=== PATIENT | male | born 1945 | race Caucasian/White ===

== ENCOUNTER 2019-10-09 13:54 | Observation (INO) | payer OTHER ==
[~2019-10-09] VITALS: Ht 170.2 cm; Wt 63.9 kg
--- NOTE | 2019-10-09 01:17 | NUR ---
POTASSIUM WRITTEN ORDER BY DR. HERNANDEZ TO RECHECK POTASSIUM AT 1999. PT WAS LATE COMING TO THE FLOOR FROM ER AND HAD JUST BARELY STARTED HIS 2ND BAG OF THREE. POTASSIUM HAD BEEN PREMATURELY DRAWN AT 1999 BY LAB, AND K+ RESULTS CAME BACK AT 2.8. PT FINISHED HIS THRID BAG OF POTASSIUM AND HIS POTASSIUM WAS REDRAWN BY LAB. RESULTS OF [address] HERNANDEZ WRITTEN NOTE IN H&P AND PER REPORT FROM [facility] RN INFUSE ANOTHER 40 MEQ IF POTASSIUM IS BELOW 3.5. PT TO RECEIVE AN ADDITIONAL 40 MEQ. 1ST BAG OF 2 INFUSING AT THIS TIME.
[~2019-10-09 13:54] MED LIST: AMLO10 PO; ASPI81CH PO; ATEN25 PO; CHLO25B PO; Cyclobenzaprine5 MG PO; GABA100 PO; GLIP5 PO; Hydrocodone-Ap1 EA23 PO; SIMV40 PO
[2019-10-09] MEDS ORDERED: ATOR80 PO (14:23)
[2019-10-09] MEDS ORDERED: TIZA4 PO (14:24)
[2019-10-09] MEDS ORDERED: ATEN25 PO (14:24)
[2019-10-09] MEDS ORDERED: AMLO10 PO (14:24)
[2019-10-09] MEDS ORDERED: GLIP5 PO (14:25)
[2019-10-09] MEDS ORDERED: CHLO25B PO (14:25)
[2019-10-09] MEDS ORDERED: Aspir 8181 MG PO (14:25)
[2019-10-09 14:34] LABS: BASOPHILS ABSOLUTE AUTO 0.02 K/mm3 (0.00-0.23); BASOPHILS PERCENT AUTO 0 % (0-2); EOSINOPHILS ABSOLUTE AUTO 0.03 K/mm3 (0.00-0.68); EOSINOPHILS PERCENT AUTO 0 % (0-6); Hematocrit 44.6 % (37.0-53.0); Hemoglobin 16.1 g/dL (13.5-17.5); IMMATURE GRAN ABSOLUTE AUTO 0.06 K/mm3 (0.00-0.10); IMMATURE GRAN PERCENT AUTO 1 % (0-1); LYMPHOCYTES ABSOLUTE AUTO 1.45 K/mm3 (0.84-5.20); LYMPHOCYTES PERCENT AUTO 12 % (21-46); MONOCYTES ABSOLUTE AUTO 0.87 K/mm3 (0.16-1.47); MONOCYTES PERCENT AUTO 7 % (4-13); Mean Corpuscular HGB 33.3 pg (26.0-34.0); Mean Corpuscular HGB Conc 36.1 g/dL (31.5-36.5); Mean Corpuscular Volume 92 fL (80-100); Mean Platelet Volume 9.8 fL (9.1-12.4); NEUTROPHILS ABSOLUTE AUTO 10.11 K/mm3 (1.96-9.15); NEUTROPHILS PERCENT AUTO 81 % (41-73); Platelet Count 283 K/mm3 (150-400); RDW Coefficient Variation 12.5 % (11.7-14.2); RDW Standard Deviation 42.5 fL (35.1-46.3); Red Blood Cell Count 4.84 M/mm3 (4.30-5.90); White Blood Cell Count 12.54 K/mm3 (4.00-11.30)
[2019-10-09 15:23] LABS: Alanine Aminotransfer (ALT/SGP 46 U/L (12-78); Albumin/Globulin Ratio 0.9 (0.8-1.8); Alk Phos 93 U/L (50-136); Anion Gap 9 mmol/L (6-16); Aspartate Aminotrans (AST/SGOT 49 U/L (12-37); Bilirubin, Total 1.2 mg/dL (0.1-1.0); Blood Urea Nitrogen 12 mg/dL (8-24); Bun/Creatinine Ratio 21.3 (12.0-20.0); CO2, Blood 29 mmol/L (21-32); Calcium, Blood 9.9 mg/dL (8.5-10.1); Chloride, Blood 98 mmol/L (98-108); Creatinine, Blood 0.56 mg/dL (0.60-1.20); Globulin, Blood 4.7 g/dL (2.2-4.0); Glomerular Filtration Rate >60 (60-); Glucose, Blood 75 mg/dL (70-99); Potassium, Blood 2.4 mmol/L (3.5-5.5); Sodium, Blood 136 mmol/L (136-145); Total Protein, Blood 8.7 g/dL (6.4-8.2)
[2019-10-09 16:52] LABS: Source, Urine Clean Catch
[2019-10-09 16:57] LABS: Bilirubin, Urine Neg (Neg); Blood, Urine Neg (Neg); Glucose Qualitative, Urine Neg (Neg); Ketones, Urine 1+ (Neg); Leukocyte Esterase, Urine Neg (Neg); Nitrite, Urine Neg (Neg); Protein, Urine 2+ (Neg); Urobilinogen, Urine 2+ (Normal)
[2019-10-09 17:03] LABS: Appearance, Urine Clear (Clear); Color, Urine Yellow (P-Yellow)
[2019-10-09 17:04] LABS: Bacteria Rare /hpf; Red Blood Cells, Urine 0-2 /hpf (0-2); Squamous Epithelial Cells Few /hpf (Few); White Blood Cells, Urine Not Seen /hpf (0-5)
--- NOTE | 2019-10-09 18:10 | NUR ---
ASSUMED CARE PATIENT ADMITTED FROM ER TO ROOM 324, ARRIVED VIA STRETCHER AND INDEPENDENTLY TRANSFERRED TO BED. PT ARRIVED WITH POTASSIUM AND NSKCL RUNNING, DAUGHTER AT BEDSIDE. PT SETTLED TO ROOM AND CALL LIGHT NEAR. WILL CONTINUE TO MONITOR.
[2019-10-09] MEDS ORDERED: FISH OIL 1,001000 MG PO (19:28)
--- NOTE | 2019-10-09 23:35 | NUR ---
BLOOD SUGAR BLOOD SUGAR 50 WITH HS CHECK. PT IS RESTING IN BED AND IS ASYMPTOMATIC. HE REPORTS THAT HE HAD NOT EATEN ANYTHING SINCE YESTERDAY AND JUST DIDNT FEEL HUNGRY. PT GIVEN A SANDWHICH AND A CUP OF APPLE JUICE. BG RECHECKED AT 2335 AFTER SNACKS AND IS 80.
--- NOTE | 2019-10-10 01:20 | NUR ---
MAINTENANCE FLUIDS PT HAD SEVERAL MAINTENANCE FLUIDS ORDERED. NS 75 ML/HR, THIAMINE BAG TO RUN AT 200 ML/HR, AND D5 1/2 W K+ AT 125 ML/HR. PT CURRENTLY HAS D5 1/2 NS W K+ INFUSING, ALONG WITH K RIDERS. CALLED LYDIA LYN TO CLARIFY FLUID ORDERS. SINCE PT WILL BE REPLACED ORALLY WITH MULTIVITAMINS AND THIAMINE DC THIAMINE BAG. ALSO RECEIVED ORDER TO DC THE NS 75 ML/HR, AND JUST CONTINUE THE SCHEDULED D5 1/2 NS WITH K+ AT 125 ML/HR.
--- NOTE | 2019-10-10 04:59 | NUR ---
SHIFT SUMMARY PT HAS RECEIVED CLOSE TO [address] ORDERS FOR A CRITICAL POTASSIUM OF 2.4. LAST BAG OF POTASSIUM INFUSING AT THIS TIME. POTASSIUM HAS GRADUALLY INCREASED WITH K+ REPLACEMENT. PT ALSO RECEIVING MAINTENANCE FLUIDS D5 1/2 NS WITH K+. PT HAS HX OF ETOH, CIWA'S HAVE BEEN BELOW 8. HE HAS SOME MILD TO MODERATE TREMORS, MILD ANXIETY AND A OCCASIONAL HEADACHE. PT HAS BEEN A/OX4, PLESANT AND COOPERATIVE WITH CARE. PT WAS A CHANGE OF SHIFT ADMIT. ADMISSION COMPLETE AT THIS TIME. PT MEDICATED WITH TYLENOL WITH AFFECT. NEURO ASSESSMENT WNL. VITALS ARE STABLE. PT REPORTS THAT HE FEELS GOOD THIS AM. HYPOGLECEMIA THIS SHIFT, SUGARS INCREASED WITH SNACKS AND APPLE JUICE. OVERALL RESTFUL NIGHT FOR PT. BED IN LOWEST POSITION , CALL LIGHT WITHIN REACH. WILL CONTINUE TO MONITOR AND REPORT TO ONCOMING RN.
[2019-10-10 05:35] LABS: BASOPHILS ABSOLUTE AUTO 0.06 K/mm3 (0.00-0.23); BASOPHILS PERCENT AUTO 1 % (0-2); EOSINOPHILS ABSOLUTE AUTO 0.17 K/mm3 (0.00-0.68); EOSINOPHILS PERCENT AUTO 2 % (0-6); Hemoglobin 14.3 g/dL (13.5-17.5); IMMATURE GRAN ABSOLUTE AUTO 0.03 K/mm3 (0.00-0.10); IMMATURE GRAN PERCENT AUTO 0 % (0-1); LYMPHOCYTES ABSOLUTE AUTO 2.89 K/mm3 (0.84-5.20); LYMPHOCYTES PERCENT AUTO 34 % (21-46); MONOCYTES ABSOLUTE AUTO 0.84 K/mm3 (0.16-1.47); MONOCYTES PERCENT AUTO 10 % (4-13); Mean Corpuscular HGB 32.9 pg (26.0-34.0); Mean Corpuscular HGB Conc 34.9 g/dL (31.5-36.5); Mean Corpuscular Volume 94 fL (80-100); Mean Platelet Volume 10.1 fL (9.1-12.4); NEUTROPHILS ABSOLUTE AUTO 4.47 K/mm3 (1.96-9.15); NEUTROPHILS PERCENT AUTO 53 % (41-73); Platelet Count 243 K/mm3 (150-400); RDW Coefficient Variation 12.9 % (11.7-14.2); RDW Standard Deviation 44.7 fL (35.1-46.3); Red Blood Cell Count 4.35 M/mm3 (4.30-5.90); White Blood Cell Count 8.46 K/mm3 (4.00-11.30)
[2019-10-10 05:53] LABS: Magnesium, Blood 2.2 mg/dL (1.6-2.4)
[2019-10-10 06:00] LABS: Alanine Aminotransfer (ALT/SGP 40 U/L (12-78); Albumin, Blood 3.2 g/dL (3.4-5.0); Albumin/Globulin Ratio 0.8 (0.8-1.8); Alk Phos 77 U/L (50-136); Anion Gap 5 mmol/L (6-16); Aspartate Aminotrans (AST/SGOT 44 U/L (12-37); Bilirubin, Total 1.2 mg/dL (0.1-1.0); Blood Urea Nitrogen 7 mg/dL (8-24); Bun/Creatinine Ratio 12.4 (12.0-20.0); CO2, Blood 27 mmol/L (21-32); Calcium, Blood 9.1 mg/dL (8.5-10.1); Chloride, Blood 107 mmol/L (98-108); Creatinine, Blood 0.56 mg/dL (0.60-1.20); Globulin, Blood 4.1 g/dL (2.2-4.0); Glomerular Filtration Rate >60 (60-); Glucose, Blood 48 mg/dL (70-99); Potassium, Blood 3.5 mmol/L (3.5-5.5); Sodium, Blood 139 mmol/L (136-145); Total Protein, Blood 7.3 g/dL (6.4-8.2)
--- NOTE | 2019-10-10 06:18 | NUR ---
GLUCOSE GLUCOSE OF 48 THIS AM. PT ASYMPTOMATIC. PT GIVEN APPLE JUICE AND ROAST BEEF SANDWHICH. WILL RECHECK SUGAR POST INTERVENTIONS.
[2019-10-10] MEDS ORDERED: BISA10S PR (11:39)
[2019-10-10] MEDS ORDERED: ACET325 PO (11:39)
[2019-10-10] MEDS ORDERED: FOLI1 PO (11:40)
[2019-10-10] MEDS ORDERED: THERA1 EACH PO (11:40)
[2019-10-10] MEDS ORDERED: ONDA4ODT MM (11:41)
[2019-10-10] MEDS ORDERED: POTCHL20ER PO (11:41)
[2019-10-10] MEDS ORDERED: Thiamine HCl100 MG PO (11:42)
--- NOTE | 2019-10-10 13:54 | NUR ---
PT RESTING QUIETLY DURING SHIFT REPORT. WOKE EASILY FOR CARE. CBG LOW AGAIN THIS AM. PT PROVIDED WITH SNACK. PLEASANT AND TALKATIVE. UP WITH 1P SBA USING FWW TO AMBULATE TO BTHRM. SOME FORGETFULNESS/CONFUSION R/T ETOH ABUSE. K+ LEVEL WNL'S THIS AM, SEE CHART. DR ROSALESTRATE IN TO SEE PT. D/C ORDERS PLACED. IVF'S STOPPED AND IV'S TO BL FA'S D/C'D WNL'S. TELE MX NOTIFIED AND THEN D/C'D AND RETURNED. PT ABLE TO DRESS HIMSELF AND WAITED FOR AND DAUGHTER TO GET HERE. D/C ORDERS DISCUSSED WITH PT SEVERAL TIMES, LAST TIME WITH AND DAUGHTER IN . [facility] FA[facility] PER PT REQUEST. PT ASSISTED OUT TO CAR VIA W/C BY LOIS.
== END 2019-10-10 12:27 | disposition home or self-care (01) ==
LOC: ER 13:54 → MEDS 13:55 → ENPENDDIS 10-10 10:06 → MEDS 10-10 12:27
PROVIDERS: Emergency Medicine; ADMIT Family Medicine
DX: E87.6 Hypokalemia (principal)
CPT/HCPCS: 36415; 70450; 71046; 80053; 81001; 82947; 83036; 83735; 84132; 85025; 93005; 93010; 96361; 96365; 96366; 96368; 96372; 99285-25; A9270; A9270-GY; G0378; J1650; J3411; J3475; J3480; J7042

== ENCOUNTER 2023-05-26 13:05 | Day surgery (SDC) | payer OTHER ==
[~2023-05-26] VITALS: Ht 170.2 cm; Wt 59.2 kg
[~2023-05-26 13:05] MED LIST changes: +ACET325 PO; +ATOR80 PO; +Aspir 8181 MG PO; +BISA10S PR; +FISH OIL 1,001000 MG PO; +FOLI1 PO; +ONDA4ODT MM; +POTCHL20ER PO; +THERA1 EACH PO; +TIZA4 PO; +Thiamine HCl100 MG PO
[2023-05-26 14:27] VITALS: BP 148/100
--- NOTE | 2023-05-26 14:51 | NUR ---
05/26/23 1451 Ulisses Morrison IV REMOVED INTACT. SITE WNL. PT ADVISED TO MONITOR B/P AT HOME AND FOLLOW UP WITH PCP.
== END 2023-05-26 14:41 | disposition home or self-care (01) ==
LOC: ORSCSDS 13:05
PROVIDERS: Ophthalmology
PROC: 08RJ3JZ Replacement of Right Lens with Synthetic Substitute, Percutaneous Approach (ICD-10-PCS; principal; 2023-05-26 14:30)
DX: E11.36 Type 2 diabetes mellitus with diabetic cataract (principal); H52.201 Unspecified astigmatism, right eye; H25.11 Age-related nuclear cataract, right eye; Z79.899 Other long term (current) drug therapy
CPT/HCPCS: 82947; J2250; J3010; J3301; J7040; V2632

== ENCOUNTER 2023-06-02 12:25 | Day surgery (SDC) | payer OTHER ==
[~2023-06-02] VITALS: Ht 170.2 cm; Wt 58.9 kg
--- NOTE | 2023-06-02 13:11 | NUR ---
06/02/23 1311 Gavi Lugo AT 1309 P[place]PAY[place] AT 1310
[2023-06-02 14:09] VITALS: BP 126/84
--- NOTE | 2023-06-02 14:20 | NUR ---
06/02/23 1420 DESI SEO PT DENIES ANY EYE PAIN, HOWEVER DOES HAVE ALL OVER PAIN.
== END 2023-06-02 14:30 | disposition home or self-care (01) ==
LOC: ORSCSDS 12:25
PROVIDERS: Ophthalmology
PROC: 08RK3JZ Replacement of Left Lens with Synthetic Substitute, Percutaneous Approach (ICD-10-PCS; principal; 2023-06-02 14:30)
DX: H25.12 Age-related nuclear cataract, left eye (principal); Z96.1 Presence of intraocular lens; H52.202 Unspecified astigmatism, left eye; I10 Essential (primary) hypertension; E11.9 Type 2 diabetes mellitus without complications; Z79.899 Other long term (current) drug therapy
CPT/HCPCS: J2250; J3301; J7040; V2632